=== PATIENT | female | born 1980 | race Caucasian/White ===

== ENCOUNTER 2023-04-25 12:32 | Emergency (ER) | payer OTHER ==
[~2023-04-25] VITALS: Ht 154.9 cm; Wt 66.7 kg
[2023-04-25 13:06] VITALS: BP_SYST 120; PULSE 68; RESP 16; TEMP 97.7; O2SAT 99
[2023-04-25 15:55] LABS: BILIRUBIN,URINE NEGATIVE (NEGATIVE); BLOOD, URINE NEGATIVE (NEGATIVE); CLARITY/URINE CLEAR (CLEAR); COLOR,URINE YELLOW (YELLOW); GLUCOSE,URINE NEGATIVE (NEGATIVE); KETONES,URINE NEGATIVE (NEGATIVE); LEUKOCYTE ESTERASE ,URINE TRACE (NEGATIVE); NITRITE, URINE NEGATIVE (NEGATIVE); PH,URINE 8.5 (5.0-8.0); PROTEIN URINE 1+ (NEGATIVE); UROBILINOGEN,URINE 0.2 (0.2-1.0)
[2023-04-25 16:03] LABS: BACTERIA,URINE FEW /HPF (None Seen); MUCUS,URINE 1+ /LPF (None Seen); RBC,URINE NONE SEEN /HPF (0-3)
[2023-04-25] MEDS ORDERED: KETOROLAC TROMETHAMINE 30 MG VIAL IM ONE (16:45)
[2023-04-25] MEDS ORDERED: ACETAMINOPHEN 500 MG TABLET PO ONE (16:45)
[2023-04-25] MEDS ORDERED: CYCL10TA24 PO (18:39)
[2023-04-25] MEDS ORDERED: LIDO1ADH7 TP (18:39)
[2023-04-25 18:48] VITALS: BP_SYST 145; PULSE 68; RESP 18; TEMP 97.9; O2SAT 98
== END 2023-04-25 18:48 | disposition home or self-care (01) ==
LOC: SED 12:32
DX: M54.50 Low back pain, unspecified (principal); Z79.899 Other long term (current) drug therapy; W01.0XXA Fall on same level from slipping, tripping and stumbling without subsequent striking against object, initial encounter; Y93.89 Activity, other specified; Y92.89 Other specified places as the place of occurrence of the external cause; Y99.8 Other external cause status
CPT/HCPCS: 99285; 72131; 81001; 76376; 81025; 96372; 81000; 81015; J1885